=== PATIENT | female | born 2000 | race African-American/Black ===

== ENCOUNTER 2019-07-19 08:22 | Emergency (ER) | payer SELFPAY ==
[2019-07-19] MEDS ORDERED: Ketorolac Tromethamine 60 MG/2 ML VIAL ONE (08:48)
--- NOTE | 2019-07-19 09:06 | RAD ---
EXAM: 3 views of the right ankle HISTORY: Ankle pain after fall COMPARISON: None FINDINGS: 3 views of the right ankle shows no evidence of acute fracture or dislocation. No soft tiss ue swelling is seen. No degenerative changes are present. IMPRESSION: No evidence of acute osseous abnormality.
--- NOTE | 2019-07-19 09:07 | RAD ---
XR Knee Rt 4 View STANDARD History: Fall Comparison: None. Findings: Moderate joint effusion. No acute displaced fracture or malalignment. Impression: Moderate joint effusion can be seen with internal derangement. Nonemergent MRI recommende d if clinically warranted.
== END 2019-07-19 10:05 | disposition home or self-care (01) ==
LOC: ERS 08:22
DX: S80.01XA Contusion of right knee, initial encounter (principal); M25.461 Effusion, right knee; M25.571 Pain in right ankle and joints of right foot; W07.XXXA Fall from chair, initial encounter; F90.9 Attention-deficit hyperactivity disorder, unspecified type
CPT/HCPCS: 96372; J1885

== ENCOUNTER 2021-06-02 13:21 | Emergency (ER) | payer SELFPAY ==
[2021-06-08 06:12] LABS: HSV 1 - DNA Negative (Negative); HSV 2 - DNA Positive (Negative)
== END 2021-06-02 15:26 | disposition home or self-care (01) ==
LOC: ERS 13:21
DX: N90.89 Other specified noninflammatory disorders of vulva and perineum (principal); F17.210 Nicotine dependence, cigarettes, uncomplicated
CPT/HCPCS: 87529; 99283

== ENCOUNTER 2021-12-01 19:46 | Emergency (ER) | payer SELFPAY | END 2021-12-01 19:57 | LOC: ERS 19:46 | DX: Z71.1 Person with feared health complaint in whom no diagnosis is made (principal) | CPT/HCPCS: 99282 ==

== ENCOUNTER 2022-03-10 21:36 | Emergency (ER) | payer OTHER, BC ==
[~2022-03-10 21:36] MED LIST: Iopamidol-370 76% 500 ML 1 ML ONE
[2022-03-10] MEDS ORDERED: Boostrix 0.5 ML (Tdap) VIAL ONE (22:01)
[2022-03-10] MEDS ORDERED: Morphine 4 MG/ML VIAL ONE (22:01)
[2022-03-10] MEDS ORDERED: Ondansetron PF 4 MG/2 ML Vial ONE (22:01)
[2022-03-10 22:21] LABS: #Basophils 0.1 thou/uL (0.0-0.2); #Eosinphils 0.1 thou/uL (0.0-0.7); #Lymphocytes 2.6 thou/uL (1.20-3.40); #Monocytes 0.6 thou/uL (0.11-0.59); #Neutrophils 3.4 thou/uL (1.40-6.50); %Basophils 0.9 % (0.0-1.0); %Eosinophils 0.8 % (0.0-10.0); %Lymphocytes 38.5 % (21.0-51.0); %Monocytes 9.1 % (0.0-10.0); %Neutrophils 50.7 % (42.0-75.0); Hemoglobin 11.8 g/dL (12.0-16.0); Mean Corpuscular Hemoglobin 25.9 pg (27.0-31.0); Mean Corpuscular Volume 81.1 fL (78.0-98.0); Platelet Count 322 thou/uL (130-400); RBC Distribution Width 15.1 % (11.5-14.5); Red Blood Cell (RBC) Count 4.56 mill/uL (4.20-5.40); White Blood Cell (WBC) Count 6.6 thou/uL (4.8-10.8)
[2022-03-10 22:29] LABS: BHCG - Serum Negative (NEGATIVE); Pregs Control Background? CLEAR/WHITE (CLR/WHITE); Pregs Control Bar Appear? YES (CONTROL BAR)
[2022-03-10] MEDS ORDERED: Lorazepam (BATCHED) 2 MG/ML SYR ONE (22:38)
[2022-03-10 22:46] LABS: ALT (SGPT) 9 U/L (8-55); AST (SGOT) 18 U/L (5-34); Albumin 4.4 g/dL (3.5-5.0); Alcohol 75 mg/dL (Less than 10); Alkaline Phosphatase 95 U/L (40-110); Anion Gap 17 mmol/L (10-20); BUN (Urea Nitrogen) 7 mg/dL (7.0-18.7); Bilirubin, Total 0.5 mg/dL (0.2-1.2); Calc. Creatinine Clearance 0 mL/min (70-130); Calcium 9.1 mg/dL (7.8-10.44); Carbon Dioxide 19 mmol/L (22-29); Chloride 108 mmol/L (98-107); Estimated GFR 79; Globulin 3.5 g/dL (2.4-3.5); Glucose 103 mg/dL (70-105); Protein, Total 7.9 g/dL (6.0-8.3); Sodium 141 mmol/L (136-145)
[2022-03-11 00:16] LABS: Bacteria/HPF None Seen HPF (None Seen); Bilirubin Negative (Negative); Blood, Urine 1+ (Negative); Clarity Clear (Clear); Glucose, Urine (Dipstick) Normal (Negative); Ketone, Urine Negative (Negative); Leukocyte 500 Leu/uL (Negative); Nitrite Negative (Negative); Protein, Urine (Dipstick) 20 mg/dL (Neg-Trace); Urobilinogen Normal mg/dL (Less than 2)
[2022-03-11 00:21] LABS: Amphetamine Detected (NotDetected); Barbiturates Screen Not Detected (NotDetected); Benzodiazepine Screen Not Detected (NotDetected); Cocaine Metabolite Screen Not Detected (NotDetected); Methadone Not Detected (NotDetected); Methamphetamine Detected (NotDetected); Opiate Screen Detected (NotDetected); Oxycodone Screen Not Detected (NotDetected); Phencyclidine (PCP) Not Detected (NotDetected); THC/Cannabinoid Screen Detected (NotDetected); Tricyclic Screen Not Detected (NotDetected)
[2022-03-11 00:31] LABS: RBC/HPF 0-3 HPF (0-3); Specific Gravity, Urine 1.056 (1.002-1.036)
== END 2022-03-11 01:04 ==
LOC: ERS 21:36
DX: S20.20XA Contusion of thorax, unspecified, initial encounter (principal); S80.212A Abrasion, left knee, initial encounter; S30.811A Abrasion of abdominal wall, initial encounter; F17.210 Nicotine dependence, cigarettes, uncomplicated; V89.2XXA Person injured in unspecified motor-vehicle accident, traffic, initial encounter
CPT/HCPCS: 36415; 70450; 71045; 72125; 74177; 80053; 80306; 80307; 81003; 81015; 84703; 85025; 90471; 90715; 93005; 94760; 96374; 96375; J2060; J2270; J2405; Q9967

== ENCOUNTER 2022-07-04 08:45 | Emergency (ER) | payer BC ==
[2022-07-04] MEDS ORDERED: Ibuprofen 200 MG TAB ONE (09:30)
[2022-07-04] MEDS ORDERED: Acetaminophen 325 MG TAB ONE (09:30)
== END 2022-07-04 09:48 | disposition home or self-care (01) ==
LOC: ERS 08:45
DX: J06.9 Acute upper respiratory infection, unspecified (principal); Z20.822 Contact with and (suspected) exposure to COVID-19
CPT/HCPCS: 87804; 99283; U0003; U0005

== ENCOUNTER 2022-11-12 13:29 | Emergency (ER) | payer SELFPAY ==
[2022-11-12] MEDS ORDERED: Ibuprofen 200 MG TAB ONE ×2 (15:16→15:18)
== END 2022-11-12 16:34 | disposition home or self-care (01) ==
LOC: ERS 13:29
DX: S62.633A Displaced fracture of distal phalanx of left middle finger, initial encounter for closed fracture (principal); F17.290 Nicotine dependence, other tobacco product, uncomplicated; Y04.8XXA Assault by other bodily force, initial encounter

== ENCOUNTER 2024-01-03 19:37 | Emergency (ER) | payer SELFPAY | END 2024-01-03 21:25 | disposition home or self-care (01) | LOC: ERS 19:37 | DX: A60.00 Herpesviral infection of urogenital system, unspecified (principal); F17.210 Nicotine dependence, cigarettes, uncomplicated; F17.290 Nicotine dependence, other tobacco product, uncomplicated | CPT/HCPCS: 99282 ==

== ENCOUNTER 2024-06-20 11:16 | Emergency (ER) | payer SELFPAY ==
[2024-06-20] MEDS ORDERED: Ibuprofen 800 MG TAB ONE (12:51)
== END 2024-06-20 13:30 | disposition home or self-care (01) ==
LOC: ERS 11:16
DX: B34.9 Viral infection, unspecified (principal)
CPT/HCPCS: 71045; 87081; 87428; 87430

== ENCOUNTER 2024-08-08 10:27 | Emergency (ER) | payer OTHER, SELFPAY ==
[2024-08-08 12:48] LABS: #Basophils 0.03 10x3/uL (0.0-0.2); %Basophils 0.4 % (0.0-1.0); %Eosinophils 0.6 % (0.0-10.0); %Lymphocytes 11.1 % (21.0-51.0); %Monocytes 13.3 % (0.0-10.0); %Neutrophils 74.2 % (42.0-75.0); Hematocrit 41.5 % (36.0-47.0); Hemoglobin 12.8 g/dL (12.0-16.0); Mean Corpuscular HGB CONC 30.8 g/dL (32.0-36.0); Mean Corpuscular Hemoglobin 24.4 pg (27.0-31.0); Mean Corpuscular Volume 79.2 fL (78.0-98.0); Mean Platelet Volume 9.8 fL (7.4-10.4); Platelet Count 284 10x3/uL (130-400); Red Blood Cell (RBC) Count 5.24 mill/uL (4.20-5.40)
[2024-08-08 13:04] LABS: ALT (SGPT) 19 U/L (8-55); AST (SGOT) 19 U/L (5-34); Albumin 3.8 g/dL (3.5-5.0); Alkaline Phosphatase 108 U/L (40-110); Anion Gap 11 mmol/L (10-20); BUN (Urea Nitrogen) 6 mg/dL (7.0-18.7); Bilirubin, Total 0.6 mg/dL (0.2-1.2); Calc. Creatinine Clearance 0 mL/min (70-130); Calcium 8.8 mg/dL (7.8-10.44); Carbon Dioxide 22 mmol/L (22-29); Chloride 104 mmol/L (98-107); Estimated GFR 112; Globulin 4.6 g/dL (2.4-3.5); Glucose 90 mg/dL (70-105); Potassium 3.5 mmol/L (3.5-5.1); Protein, Total 8.4 g/dL (6.0-8.3); Sodium 133 mmol/L (136-145)
[2024-08-08 13:10] LABS: Troponin I Less than 0.010 ng/mL (< 0.028)
[2024-08-08 14:20] LABS: Bacteria/HPF None Seen HPF (None Seen); Bilirubin Negative (Negative); Blood, Urine Negative (Negative); CAUTI Indications for Culture Fever or rigors; Clarity Clear (Clear); Glucose, Urine (Dipstick) Normal (Negative); Ketone, Urine Trace mg/dL (Negative); Leukocyte Negative Leu/uL (Negative); Nitrite Negative (Negative); Protein, Urine (Dipstick) Negative (Neg-Trace); RBC/HPF 0-3 HPF (0-3); Specific Gravity, Urine 1.021 (1.002-1.036); WBC/HPF 0-3 HPF (0-3)
[2024-08-08 14:24] LABS: Amphetamine Not Detected (NotDetected); Barbiturates Screen Not Detected (NotDetected); Benzodiazepine Screen Not Detected (NotDetected); Cocaine Metabolite Screen Not Detected (NotDetected); Methadone Not Detected (NotDetected); Methamphetamine Not Detected (NotDetected); Opiate Screen Not Detected (NotDetected); Oxycodone Screen Not Detected (NotDetected); Phencyclidine (PCP) Not Detected (NotDetected); THC/Cannabinoid Screen Detected (NotDetected); Tricyclic Screen Not Detected (NotDetected)
[2024-08-08 14:25] LABS: Urine Culture Reflex No No
[2024-08-08] MEDS ORDERED: Iopamidol 370 76% 100 ML VIAL ONE (15:37)
== END 2024-08-08 16:09 | disposition home or self-care (01) ==
LOC: ERS 10:27
DX: B34.9 Viral infection, unspecified (principal)
CPT/HCPCS: 36415; 71046; 71275; 80053; 80306; 81001; 84484; 85025; 85379; 87428; 93005; Q9967

== ENCOUNTER 2025-06-20 06:58 | Emergency (ER) | payer OTHER ==
[2025-06-20 07:17] LABS: Bacteria/HPF None Seen HPF (None Seen); CAUTI Indications for Culture Pregnancy; Glucose, Urine (Dipstick) Normal (Negative); Leukocyte Negative Leu/uL (Negative); Protein, Urine (Dipstick) Negative (Neg-Trace); RBC/HPF 0-3 HPF (0-3); Specific Gravity, Urine 1.019 (1.002-1.036); WBC/HPF 0-3 HPF (0-3)
[2025-06-20 07:20] LABS: Pregnancy Test - Urine (BHCG) Negative (Negative); Pregu Control Background? CLEAR/WHITE (CLR/WHITE); Pregu Control Bar Appear? YES (CONTROL BAR)
[2025-06-20 07:51] LABS: Urine Culture Reflex Yes Yes
[2025-06-20] MEDS ORDERED: Dexamethasone 10 MG/ML VIAL ONE (08:01)
== END 2025-06-20 08:02 | disposition home or self-care (01) ==
LOC: ERS 06:58
DX: J02.9 Acute pharyngitis, unspecified (principal); F17.210 Nicotine dependence, cigarettes, uncomplicated; F17.290 Nicotine dependence, other tobacco product, uncomplicated
CPT/HCPCS: 81001; 81025; 87081; 87086; 87428; 87430; 96372; 99282; J1100